=== PATIENT | male | born 1980 | race Caucasian/White ===

== ENCOUNTER 2025-08-29 07:48 | Emergency (ER) | payer MEDICAID ==
[~2025-08-29] VITALS: Ht 177.8 cm; Wt 81.8 kg
[2025-08-29 08:05] VITALS: BP 164/87; PULSE 75; RESP 18; TEMP 98.1; O2SAT 98
[2025-08-29] MEDS: KETOROLAC TROMETHAMINE 30 MG/ML VIAL IM ONE (08:46)
[2025-08-29] MEDS: ACETAMINOPHEN 500 MG TABLET PO ONE (08:46)
[2025-08-29] MEDS: AMOX TR/POT CLAV 875 MG/125 MG TABLET PO ONE (08:46)
[2025-08-29] MEDS ORDERED: AMOX-457 PO (08:50)
[2025-08-29] MEDS ORDERED: ACET-3385 PO (08:50)
[2025-08-29] MEDS ORDERED: IBUP-1492 PO (08:50)
== END 2025-08-29 09:01 | disposition home or self-care (01) ==
LOC: EMS 07:48
DX: K02.9 Dental caries, unspecified (principal); F12.90 Cannabis use, unspecified, uncomplicated; F17.210 Nicotine dependence, cigarettes, uncomplicated; Z91.018 Allergy to other foods
CPT/HCPCS: 99283; 96372; J1885